=== PATIENT | female | born 1950 | race Caucasian/White ===

== ENCOUNTER → 2019-03-19 13:41 | Outpatient (CLI) | payer MEDICARE, SELFPAY ==
[2019-03-05 11:07] VITALS: BMI 35.5
--- NOTE | 2019-03-19 13:43 | ECHOD_ITS ---
Reason For Study: PHTN Procedure This was a 2D Doppler, Color Flow transthoracic echocardiogram. The study was technically difficult. Contrast injection was performed. Exam performed in department. Left Ventricle Normal LV size. Left ventricular systolic function is normal. The estimated ejection fraction is 60 %. No evidence for diastolic dysfunction. No regional wall motion abnormalities noted. Right Ventricle Normal RV size. Normal systolic function. Atria Normal left atrium. Normal right atrium. No doppler evidence for ASD. Bubble contrast study negative for right to left interatrial shunt. Mitral Valve There is no mitral annular calcification. Normal mitral valve. Trivial mitral valve insufficiency. Tricuspid Valve Normal tricuspid valve. Trivial tricuspid valve insufficiency. Right ventricular systolic pressure estimated to be 28 mmHg. Aortic Valve Trisinus/trileaflet aortic valve. Normal aortic valve. Pulmonic Valve The pulmonic valve is not well visualized. Trivial pulmonic valve insufficiency. Great Vessels Normal sized aortic root. Pericardium/Pleural No pericardial effusion. Medication 22 gauge I.V. with prn adaptor inserted into right arm. Performed a rapid injection of agitated mix of 9 cc saline and 1cc air to assess for atrial septal defect. MMode/2D Measurements & Calculations LVIDd: 3.9 cm IVSd: 1.3 cm Ao root diam: 3.6 cm LVIDs: 2.5 cm LVPWd: 1.2 cm LA dimension: 3.1 cm FS: 37.4 % LAV(MOD-bp): 44.4 ml LA A4 area: 16.8 cm2 RA A4 area: 11.8 cm2 LAV(MOD-bp) Indexed: 26.1 ml/m2 LAV(MOD-sp2): 44.0 ml LAV(MOD-sp4): 43.5 ml Time Measurements MV dec time: 0.24 sec Doppler Measurements & Calculations MV E max michi: 82.5 cm/sec Lat Peak E' Michi: 6.8 cm/sec Med Peak E' Michi: 6.5 cm/sec MV A max michi: 92.7 cm/sec E/E' lat: 12.2 E/E' med: 12.7 MV E/A: 0.89 MV V2 max: 103.0 cm/sec MV P1/2t max michi: 87.6 cm/sec Ao V2 max: 120.4 cm/sec MV max P.2 mmHg MV P1/2t: 117.0 msec Ao max P.8 mmHg MV V2 mean: 59.5 cm/sec MV dec slope: 219.5 cm/sec2 MV mean P.6 mmHg MV V2 VTI: 30.4 cm MVA(P1/2t): 1.9 cm2 LV V1 max: 99.8 cm/sec PA V2 max: 108.8 cm/sec PI end-d michi: 95.3 cm/sec LV V1 max P.0 mmHg TR max michi: 231.1 cm/sec TR max P.4 mmHg Interpretation Summary The study was technically difficult. Contrast injection was performed. Left ventricular systolic function is normal. The estimated ejection fraction is 60 %. Trivial mitral valve insufficiency. Trivial tricuspid valve insufficiency. Trivial pulmonic valve insufficiency. Right ventricular systolic pressure estimated to be 28 mmHg. No evidence for diastolic dysfunction. Ordering Physician: Tavon Robles Referring Physician: Tavon Robles Performed By: Stephen Lopes RCS
== END ==
PROVIDERS: Family Provider Physician Assistant; PCP Physician Assistant; Referring Provider Internal Medicine Critical Care Medicine; Visit Provider Internal Medicine Critical Care Medicine
DX: I27.20 Pulmonary hypertension, unspecified (principal); R09.02 Hypoxemia
CPT/HCPCS: 93306; A4216

== ENCOUNTER → 2019-03-28 09:31 | Outpatient (CLI) | payer MEDICARE, SELFPAY ==
[2019-03-05 11:07] VITALS: BMI 35.5
--- NOTE | 2019-03-29 07:02 | PFT ---
INTRODUCTION: The patient is a 68-year-old female that presents for pulmonary function studies secondary to a diagnosis of hypoxia. Respiratory therapy reports good patient effort. Bronchodilators were used during testing. INTERPRETATION: Forced expiration spirometry demonstrates no evidence of a large airways obstructive ventilatory defect. There was no significant response to aerosolized bronchodilators. Spirograms are of fair quality and plateau gradually indicating slow emptying of the lungs. Body plethysmography was performed and reveals lung volumes to be within normal limits. Diffusing capacity by single breath CO is reduced at 62% of predicted. IMPRESSION: Isolated reduction in diffusing capacity, which could be related to an underlying pulmonary vascular disorder such as pulmonary hypertension.
== END ==
PROVIDERS: Family Provider Physician Assistant; PCP Physician Assistant; Referring Provider Internal Medicine Critical Care Medicine; Visit Provider Internal Medicine Critical Care Medicine
DX: R09.02 Hypoxemia (principal)
CPT/HCPCS: 94060; 94726; 94729

== ENCOUNTER → 2022-11-09 | Outpatient (CLI) | payer MEDICARE, SELFPAY ==
--- NOTE | 2022-11-09 14:43 | NEURO ---
NCS and/or EMG Patient Report Ordering Doctor: DANELLE NAM DATE OF SERVICE: 11/09/22 Neha presents with complaints of difficulty walking and complains of having the shakes. Electrodiagnostic findings: Left median motor nerve demonstrates normal distal latency, amplitude and conduction velocity. Normal left ulnar motor response. Left peroneal and tibial motor responses are within normal limits. F-waves and H-reflex within normal limits. Sensory responses are normal. Needle EMG testing was performed in the left upper and left lower limb. Motor unit action potentials of normal amplitude and duration. No acute denervation noted in any muscles tested. Motor diagnostic assessment: This is a normal electrodiagnostic study of the left upper and left lower limb. There is no electrodiagnostic evidence for peripheral neuropathy, including carpal tunnel or cubital tunnel syndrome. There is no electrodiagnostic evidence for left-sided cervical or lumbar radiculopathy. Multi Select Codes Neurology Neurology Interp Codes: 25973-08 Musc test done w/n test comp (interp) (2) and 05927-86 Nrv cndj test 11-12 studies (interp)
== END | disposition home or self-care (01) ==
PROVIDERS: PCP Physician Assistant; Referring Provider Psychiatry & Neurology Neurology; Visit Provider Psychiatry & Neurology Neurology
DX: R26.81 Unsteadiness on feet (principal)
CPT/HCPCS: 95886; 95912